=== PATIENT | male | born 1980 | race Caucasian/White ===

== ENCOUNTER 2020-09-23 19:04 | Emergency (ER) | payer SELFPAY ==
[~2020-09-23] VITALS: Ht 175.3 cm; Wt 93.6 kg
[2020-09-23 19:31] VITALS: BP 155/98
--- NOTE | 2020-09-23 19:31 | NUR ---
TO [facility] WITH [facility] OFFICERS.
[2020-09-23 20:07] VITALS: BP 155/98
--- NOTE | 2020-09-23 20:20 | NUR ---
PATIENT BIB [facility]. PATIENT EXAMINED BY DR. HAM. PATIENT MEDICALLY CLEARED AND RELEASED IN CUSTODY IN STABLE CONDITION. ORIGINAL PRE-BOOK FORM GIVEN TO OFFICER.
== END 2020-09-23 20:07 ==
LOC: MED 19:04
DX: Z02.89 Encounter for other administrative examinations (principal); V98.8XXA Other specified transport accidents, initial encounter; Y93.89 Activity, other specified; Y92.89 Other specified places as the place of occurrence of the external cause; Y99.8 Other external cause status
CPT/HCPCS: 99283